=== PATIENT | female | born 1975 | race Asian ===

== ENCOUNTER 2021-12-10 11:45 | Emergency (ER) | payer MEDICAID ==
[~2021-12-10] VITALS: Ht 152.4 cm; Wt 50.0 kg
[2021-12-10] MEDS ORDERED: ALBU6.7H9 INH (12:28)
[2021-12-10] MEDS ORDERED: AMOX-422 PO (12:28)
[2021-12-10] MEDS ORDERED: PRED20TA PO (12:28)
[2021-12-10 12:38] VITALS: BP 94/57
== END 2021-12-10 12:45 | disposition home or self-care (01) ==
LOC: ER 11:47
DX: U07.1 COVID-19 (principal); J40 Bronchitis, not specified as acute or chronic
CPT/HCPCS: 71045; 99283